=== PATIENT | female | born 1930 | race Caucasian/White ===

== ENCOUNTER → 2018-07-15 | Day surgery (SDC) | payer MEDICARE ==
[2018-07-12 14:20] LABS: BASOPHILS % 0.7 % (0.0-1.0); EOSINOPHILS # (AUTO) 0.2 (0.0-0.4); EOSINOPHILS % 3.7 % (0.0-6.0); HEMATOCRIT 36.5 % (34.2-44.1); HEMOGLOBIN 12.2 g/dL (12.0-16.0); LYMPHOCYTES % 37.4 % (18.0-39.1); MEAN CORPUSCULAR HEMOGLOBIN 30.7 pg (28-32); MEAN CORPUSCULAR HGB CONC 33.4 g/dL (31-35); MEAN CORPUSCULAR VOLUME 91.9 fL (81-99); MONOCYTES # (AUTO) 0.5 (0.2-0.8); NEUTROPHILS # (AUTO) 2.7 (2.1-6.9); NEUTROPHILS % 48.8 % (38.7-80.0); PLATELET COUNT 339 x10e3/uL (140-360); RED BLOOD COUNT 3.97 x10e6/uL (3.6-5.1); RED CELL DISTRIBUTION WIDTH 14.3 % (11.7-14.4)
[~2018-07-15] MED LIST: ASPIR 8181 MG PO; CO Q10200 MG PO; CRANBERRY300 MG PO; CRESTOR10 MG PO; EVISTA60 MG PO; FENOFIBRATE145 MG PO; FENTANYL CITRATE/PF 100MCG/2 ML INJ ONE; IOPAMIDOL 200 MG/ML 20 ML VIAL IT ONE; LIDOCAINE HCL 1% 30ML-PF VIAL ONE; LIDOCAINE HCL 2% LOCAL INJ 5 ML SDV VIAL INJ ONE; LOSARTAN POTAS100 MG PO; MAGNESIUM OXID400 MG PO; METOPROLOL SUCC25 MG PO; MIDAZOLAM HCL 2 MG/2 ML VIAL ONE; MULTI-VITAMIN1 EACH PO; PHENYLEPHRINE HCL 1% 10 MG/ML VIAL ONE; PROPOFOL IV EMULSION 10 MG/ML 20 ML VIAL ONE; TRIAMCINOLONE ACET 40 MG/ML VIAL ONE
--- OUTSIDE RECORDS SUMMARY | 2018-07-15 05:13 | XMS REPORT | Clinical Summary ---
Author Author [facility] Organization [facility] Address Unknown Phone Unavailable Care Team Providers Care Tool And Cutter Grinder Name Role Phone Go Rubio MD PCP Allergies Comments Active Allergy Reactions Severity Noted Date Naproxen 05/21/2018 Penicillins 05/21/2018 Medications Not on file Active Problems Not on file Encounters Care Team Description Date Type Specialty Moi Brown, Acute right ankle pain (Primary Dx); Ankle edema 05/21/2018 Emergency Emergency Medicine 05/21/2018 Travel after 07/14/2017 Social History Date Tobacco Use Types Packs/Day Years Used Never Smoker Smokeless Tobacco: Never Used Alcohol Use Drinks/Week oz/Week Comments No Alcohol Habits Answer Date Recorded How often do you have a drink containing alcohol? Never 05/21/2018 How many drinks containing alcohol do you have on Not asked a typical day when you are drinking? How often do you have six or more drinks on one Not asked occasion? Sex Assigned at Date Recorded Not on file Industry Job Start Date Occupation Not on file Not on file Not on file Travel End Travel History Travel Start No recent travel history available. Last Filed Vital Signs Time Taken Vital Sign Reading 05/21/2018 4:13 PM [employer] ATTENDANT Blood Pressure 139/63 05/21/2018 4:13 PM [employer] ATTENDANT Pulse 72 05/21/2018 12:37 PM [employer] ATTENDANT Temperature 36.4 C (97.6 F) 05/21/2018 4:13 PM [employer] ATTENDANT Respiratory Rate 19 05/21/2018 4:13 PM [employer] ATTENDANT Oxygen Saturation 99% - Inhaled Oxygen - Concentration 05/21/2018 12:38 PM [employer] ATTENDANT Weight 76.2 kg (168 lb) 05/21/2018 12:38 PM [employer] ATTENDANT Height 165.1 cm (5' 5") 05/21/2018 12:38 PM [employer] ATTENDANT Body Mass Index 27.96 Plan of Treatment Health Maintenance Due Date Last Done Comments SHINGLES VACCINES (1 of 1981 2) PNEUMOCOCCAL 1996 POLYSACCHARIDE VACCINE AGE 65 AND OVER PNEUMOCOCCAL-13 1996 INFLUENZA VACCINE 02/03/2018 Procedures Comments Procedure Name Priority Date/Time Associated Diagnosis XR ANKLE 3+ VW RIGHT STAT 05/21/2018 3:30 PM [employer] ATTENDANT US DUPLEX VENOUS LOWER STAT 05/21/2018 EXTREMITY RIGHT 1:55 PM [employer] ATTENDANT ESTIMATED GFR STAT 05/21/2018 1:18 PM [employer] ATTENDANT URIC ACID LEVEL STAT 05/21/2018 1:18 PM [employer] ATTENDANT COMPREHENSIVE METABOLIC STAT 05/21/2018 PANEL 1:18 PM [employer] ATTENDANT HC COMPLETE BLD COUNT STAT 05/21/2018 W/AUTO DIFF 1:18 PM [employer] LINE ATTENDANT after 07/14/2017 Results * XR Ankle 3+ Vw Right (05/21/2018 3:30 PM [employer] ATTENDANT) Narrative Performed At EXAMINATION:XR ANKLE 3VW RIGHT HM [facility] CLINICAL HISTORY: ankle pain COMPARISON:None. FINDINGS: The bones are demineralized. There is some diffuse soft tissue swelling. No fracture or malalignment is noted. There is no significant ankle joint effusion. There is a small plantar calcaneal spur. IMPRESSION: As above [id number] Procedure Note Hm Interface, Radiology Results Incoming - 05/21/2018 3:34 PM [employer] ATTENDANT EXAMINATION: XR ANKLE 3 VW RIGHT CLINICAL HISTORY: ankle pain COMPARISON: None. FINDINGS: The bones are demineralized. There is some diffuse soft tissue swelling. No fracture or malalignment is noted. There is no significant ankle joint effusion. There is a small plantar calcaneal spur. IMPRESSION: As above [id number] Performing Organization Address City/State/Zipcode Phone Number [facility] [address] [place] [address] * PV duplex venous lower extremity (05/21/2018 1:55 PM [employer] ATTENDANT) Narrative Performed At [facility] Normal venous duplex scan of the right leg. Performing Organization Address City/[facility]/Zipcode Phone Number [facility] [address] [place] [address] * Estimated GFR (05/21/2018 1:18 PM [employer] ATTENDANT) Estimated GFR 57 (A) mL/min/1.73 m2 [facility] Comment: [facility] CatergoryUnitsInte rpretation G1 >=90 Normal or high G2 60-89Mildly decreased [id number] Mildly to moderately decreased [id number] Moderately to severely decreased G4 15-29Severely decreased G5 <15Kidney failure The eGFR was calculated using the Chronic Kidney Disease Epidemiology Collaboration (CKD-EPI) equation. Interpretation is based on recommendations of the National Kidney Foundation-Kidney Disease Outcomes Quality Initiative (NKF-KDOQI) published in 2014. Specimen Plasma specimen Performing Organization Address City/State/Zipcode Phone Number [facility] DEPARTMENT [id number] [place] [address] [place] [address] PATHOLOGY AND GENOMIC MEDICINE [facility] [address] [place] [address] [place] [place] [id number] [place] [address] * CBC with platelet and differential (05/21/2018 1:18 PM [employer]IR[employer] LINE ATTENDANT) WBC 4.33 (L) 4.50 - 11.00 k/uL [facility] RBC 3.68 (L) 4.20 - 5.50 m/uL [facility] HGB 11.2 (L) 12.0 - 16.0 g/dL [facility] HCT 33.9 (L) 37.0 - 47.0 % [facility] MCV 92.1 82.0 - 100.0 fL [facility] MCH 30.4 27.0 - 34.0 pg [facility] MCHC 33.0 31.0 - 37.0 g/dL [facility] RDW - SD 48.8 37.0 - 55.0 fL [facility] MPV 11.1 8.8 - 13.2 fL [facility] Platelet count 242 150 - 400 k/uL [facility] Nucleated RBC 0.00 /100 WBC [facility] Neutrophils 57.0 39.0 - 69.0 % [facility] Lymphocytes 26.6 25.0 - 45.0 % [facility] Monocytes 11.8 (H) 0.0 - 10.0 % [facility] Eosinophils 3.9 0.0 - 5.0 % [facility] Basophils 0.5 0.0 - 1.0 % [facility] Specimen Blood Performing Organization Address City/[facility] Phone Number [address] [place] [address] PATHOLOGY AND GENOMIC MEDICINE [address] * Uric acid level (05/21/2018 1:18 PM VIRGINIA LINE ATTENDANT) Uric acid 4.2 2.4 - 5.7 mg/dL [facility] Specimen Plasma specimen Performing Organization Address City/[facility] Phone Number [address] [place] [address] PATHOLOGY AND GENOMIC MEDICINE [address] * Comprehensive metabolic panel (05/21/2018 1:18 PM VIR[employer]IA LINE ATTENDANT) Sodium 140 135 - 148 mEq/L [facility] Potassium 4.2 3.5 - 5.0 mEq/L [facility] Chloride 107 98 - 112 mEq/L [facility] CO2 23 (L) 24 - 31 mEq/L [facility] Anion gap 10@ANIO 7 - 15 mEq/L [facility] BUN 13 8 - 23 mg/dL [facility] Creatinine 0.90 0.50 - 0.90 mg/dL [facility] Glucose 99 65 - 99 mg/dL [facility] Calcium 10.1 8.8 - 10.2 mg/dL [facility] Protein 6.6 6.3 - 8.3 g/dL [facility] Comment: [facility] 4.6-7.0 g/dL 1 week 4.4-7.6 g/dL 7 months-1year 5.1-7.3 g/dL 1-2 years5.6-7 .5 g/dL >3 years6.0-8 .0 g/dL 18-150 6.3-8.3 g/dL Albumin 3.7 3.5 - 5.0 g/dL [facility] A/G ratio 1.3 0.7 - 3.8 [facility] Alkaline phosphatase 35 35 - 104 U/L [facility] AST 29 10 - 35 U/L [facility] ALT 13 5 - 50 U/L [facility] Total bilirubin 0.4 0.0 - 1.2 mg/dL [facility] Specimen Plasma specimen Performing Organization Address City/State/Zipcode [place] Number [place] [address] [place] [address] PATHOLOGY AND GENOMIC MEDICINE [facility] [id number] [place] [address] [place] [address] [facility] after 07/14/2017 Insurance Payer Benefit Subscriber ID Type Phone Address Plan / Group UHC MEDICARE UHC xxxxxxxxx HMO MEDICARE COMPLETE Advance Directives Patient has advance care planning documents on file. For more information, cassius e contact: [facility] [address] [place] [address]
[2018-07-15 07:25] VITALS: BP 118/65
== END | disposition home or self-care (01) ==
LOC: OR 05:05
PROVIDERS: ATTEND Physical Medicine & Rehabilitation Pain Medicine
DX: M47.896 Other spondylosis, lumbar region (principal); M46.1 Sacroiliitis, not elsewhere classified; M17.0 Bilateral primary osteoarthritis of knee; M16.11 Unilateral primary osteoarthritis, right hip; M70.62 Trochanteric bursitis, left hip; M70.61 Trochanteric bursitis, right hip; G89.29 Other chronic pain; I44.7 Left bundle-branch block, unspecified; I49.1 Atrial premature depolarization; I10 Essential (primary) hypertension; E78.00 Pure hypercholesterolemia, unspecified; H93.19 Tinnitus, unspecified ear; Z88.0 Allergy status to penicillin; Z88.6 Allergy status to analgesic agent; Z01.810 Encounter for preprocedural cardiovascular examination; Z01.812 Encounter for preprocedural laboratory examination; Z79.82 Long term (current) use of aspirin; Z85.828 Personal history of other malignant neoplasm of skin; Z87.891 Personal history of nicotine dependence
CPT/HCPCS: 36415; 64493; 64494; 64495; 85025; 93005; J2001 ×2; J2250; J2370; J2704; J3301; Q9967; 77003

== ENCOUNTER → 2018-07-29 | Day surgery (SDC) | payer MEDICARE ==
[~2018-07-29] MED LIST changes: -FENTANYL CITRATE/PF 100MCG/2 ML INJ ONE; -MIDAZOLAM HCL 2 MG/2 ML VIAL ONE; -PHENYLEPHRINE HCL 1% 10 MG/ML VIAL ONE
--- OUTSIDE RECORDS SUMMARY | 2018-07-29 05:24 | XMS REPORT | Clinical Summary ---
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 Name Role Phone Go Rubio MD PCP Allergies Comments Active Allergy Reactions Severity Noted Date Naproxen 05/21/2018 Penicillins 05/21/2018 Medications Not on file Active Problems Not on file Encounters Care Team Description Date Type Specialty Moi Brown, Acute right ankle pain (Primary Dx); Ankle edema 05/21/2018 Emergency Emergency Medicine 05/21/2018 Travel after 07/28/2017 Social History Date Tobacco Use Types Packs/Day [...] Taken Vital Sign Reading 05/21/2018 4:13 PM EDITING INTERNSHIP Blood Pressure 139/63 05/21/2018 4:13 PM [employer] Pulse 72 05/21/2018 12:37 PM [employer] INTERNS[employer] Temperature 36.4 C (97.6 F) 05/21/2018 4:13 PM [employer] Respiratory Rate 19 05/21/2018 4:13 PM [employer] INTERNS[employer]IP Oxygen Saturation 99% - Inhaled Oxygen - Concentration 05/21/2018 12:38 PM [employer]NS[employer]IP Weight 76.2 kg (168 lb) 05/21/2018 12:38 PM [employer] INTERNS[employer] Height 165.1 cm (5' 5") 05/21/2018 12:38 PM EDITING INTERNSHIP Body Mass Index 27.96 Plan of Treatment Health Maintenance Due Date Last Done Comments SHINGLES VACCINES (1 of 1981 2) PNEUMOCOCCAL 1996 POLYSACCHARIDE VACCINE AGE 65 AND OVER PNEUMOCOCCAL-13 1996 INFLUENZA VACCINE 02/03/2018 Procedures Comments Procedure Name Priority Date/Time Associated Diagnosis XR ANKLE 3+ VW RIGHT STAT 05/21/2018 3:30 PM [employer] INTERNS[employer]IP US DUPLEX VENOUS LOWER STAT 05/21/2018 EXTREMITY RIGHT 1:55 PM [employer] ESTIMATED GFR STAT 05/21/2018 1:18 PM [employer] INTERNSHIP URIC ACID LEVEL STAT 05/21/2018 1:18 PM [employer] INTERNSHIP COMPREHENSIVE METABOLIC STAT 05/21/2018 PANEL 1:18 PM [employer] INTERNSHIP HC COMPLETE BLD COUNT STAT 05/21/2018 W/AUTO DIFF 1:18 PM [employer] INTER[employer] after 07/28/2017 Results * XR Ankle 3+ Vw Right (05/21/2018 3:30 PM [employer] INTERNSH[employer]) Narrative Performed At EXAMINATION:XR ANKLE 3VW RIGHT HM [facility] CLINICAL HISTORY: ankle pain COMPARISON:None. FINDINGS: The bones are demineralized. There is some diffuse soft tissue swelling. No fracture or malalignment is noted. There is no significant ankle joint effusion. There is a small plantar calcaneal spur. IMPRESSION: As above [id number] Procedure Note Hm Interface, Radiology Results Incoming - 05/21/2018 3:34 PM [employer] INTERNSHIP EXAMINATION: XR ANKLE 3 VW RIGHT CLINICAL HISTORY: ankle pain COMPARISON: None. FINDINGS: The bones are demineralized. There is some diffuse soft tissue swelling. No fracture or malalignment is noted. There is no significant ankle joint effusion. There is a small plantar calcaneal spur. IMPRESSION: As above [id number] Performing Organization Address City/State/Zipcode Phone Number [facility] [address] [place] [address] * PV duplex venous lower extremity (05/21/2018 1:55 PM [employer] INTERNSHIP) Narrative Performed At [facility] Normal venous duplex scan of the right leg. Performing Organization Address City/[facility]/Zipcode Phone Number [facility] [address] [place] [address] * Estimated GFR (05/21/2018 1:18 PM EDIT[employer] INTERNSHIP) Estimated GFR 57 (A) mL/min/1.73 m2 [facility] Comment: [facility] CatergoryUnitsInte rpretation G1 >=90 Normal or high G2 60-89Mildly decreased [id number] Mildly to moderately decreased Q1c35-91 Moderately to severely decreased G4 15-29Severely decreased G5 <15Kidney failure The eGFR was calculated using the Chronic Kidney Disease Epidemiology Collaboration (CKD-EPI) equation. Interpretation is based on recommendations of the National Kidney Foundation-Kidney Disease Outcomes Quality Initiative (NKF-KDOQI) published in 2014. Specimen Plasma specimen Performing Organization Address City/State/Zipcode Phone Number [facility] DEPARTMENT [id number] [place] [address] [place] [address] PATHOLOGY AND GENOMIC MEDICINE [facility] [id number] [place] [address] [place] [id number] [place] [address] * CBC with platelet and differential (05/21/2018 1:18 PM [employer] INTERNSH[employer]) WBC 4.33 (L) 4.50 - 11.00 k/uL [facility] RBC 3.68 (L) 4.20 - 5.50 m/uL [facility] HGB 11.2 (L) 12.0 - 16.0 g/dL [facility] HCT 33.9 (L) 37.0 - 47.0 % [facility] MCV 92.1 82.0 - 100.[address] [facility] MCH 30.4 27.0 - 34.[address] [facility] MCHC 33.0 31.0 - 37.0 g/dL [facility] RDW - SD 48.8 37.0 - 55.[address] [facility] MPV 11.1 8.8 - 13.[address] [facility] Platelet count 242 150 - 400 k/uL [facility] Nucleated RBC 0.00 /[address] [facility] Neutrophils 57.0 39.0 - 69.0 % [facility] Lymphocytes 26.6 25.0 - 45.0 % [facility] Monocytes 11.8 (H) 0.0 - 10.0 % [facility] Eosinophils 3.9 0.0 - 5.0 % [facility] Basophils 0.5 0.0 - 1.0 % [facility] Specimen Blood Performing Organization Address City/[facility] Phone Number [address] [place] [address] PATHOLOGY AND GENOMIC MEDICINE [address] * Uric acid level (05/21/2018 1:18 PM [employer] INTERNSHIP) Uric acid 4.2 2.4 - 5.7 mg/dL [facility] Specimen Plasma specimen Performing Organization Address City/[facility] Hospital[facility]oid Phone Number [address] [place] [address] PATHOLOGY AND GENOMIC MEDICINE [address] * Comprehensive metabolic panel (05/21/2018 1:18 PM [employer]NSH[employer]) Sodium 140 135 - 148 mEq/L [facility] Potassium 4.2 3.5 - 5.0 mEq/L [facility] Chloride 107 98 - 112 mEq/L [facility] CO2 23 (L) 24 - 31 mEq/L [facility] Anion gap 10@ANIO 7 - 15 mEq/L [facility] BUN 13 8 - 23 mg/dL [facility] Creatinine 0.90 0.50 - 0.90 mg/dL [facility] Glucose 99 65 - 99 mg/dL [facility] Calcium 10.1 8.8 - 10.2 mg/dL [facility] Protein 6.6 6.3 - 8.3 g/dL [facility] Comment: [facility] 4.6-7.0 g/dL 1 week 4.4-7.6 g/dL 7 months-1year 5.1-7.3 g/dL 1-2 years5.6-7 .5 g/dL >3 years6.0-8 .0 g/dL 18-150 6.3-8.3 g/dL Albumin 3.7 3.5 - 5.0 g/dL [facility] A/G ratio 1.3 0.7 - 3.8 [facility] Alkaline phosphatase 35 35 - 104 U/L [facility] AST 29 10 - 35 U/L [facility] ALT 13 5 - 50 U/L [facility] Total bilirubin 0.4 0.0 - 1.2 mg/dL [facility] Specimen Plasma specimen Performing Organization Address City/State/Zipcode [place] Number [place] [address] [place] [address] PATHOLOGY AND GENOMIC MEDICINE [facility] [id number] [place] [address] [place] [address] [facility] after 07/28/2017 Insurance Payer Benefit Subscriber ID Type Phone Address Plan / Group UHC MEDICARE UHC xxxxxxxxx HMO MEDICARE COMPLETE Advance Directives Patient has advance care planning documents on file. For more information, cassius e contact: [facility] [address] [place] [address]
[2018-07-29 08:10] VITALS: BP 116/63
== END | disposition home or self-care (01) ==
LOC: OR 05:18
PROVIDERS: ATTEND Physical Medicine & Rehabilitation Pain Medicine
DX: M46.1 Sacroiliitis, not elsewhere classified (principal); M47.816 Spondylosis without myelopathy or radiculopathy, lumbar region; M17.0 Bilateral primary osteoarthritis of knee; M16.11 Unilateral primary osteoarthritis, right hip; M47.897 Other spondylosis, lumbosacral region; I10 Essential (primary) hypertension; E78.00 Pure hypercholesterolemia, unspecified; I49.1 Atrial premature depolarization; Z88.6 Allergy status to analgesic agent; Z88.0 Allergy status to penicillin; Z79.82 Long term (current) use of aspirin; Z87.891 Personal history of nicotine dependence; Z85.828 Personal history of other malignant neoplasm of skin
CPT/HCPCS: G0260; J2001 ×2; J2704; J3301; Q9967

== ENCOUNTER → 2018-08-19 | Day surgery (SDC) | payer MEDICARE ==
[~2018-08-19] MED LIST changes: +IRBESARTAN150 MG PO
--- OUTSIDE RECORDS SUMMARY | 2018-08-19 05:55 | XMS REPORT | Clinical Summary ---
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 Name Role Phone Go Rubio MD PCP Allergies Comments Active Allergy Reactions Severity Noted Date Naproxen 05/21/2018 Penicillins 05/21/2018 Medications Not on file Active Problems Not on file Encounters Care Team Description Date Type Specialty Moi Brown, Acute right ankle pain (Primary Dx); Ankle edema 05/21/2018 Emergency Emergency Medicine 05/21/2018 Travel after 08/18/2017 Social History Date Tobacco Use Types Packs/Day [...] Taken Vital Sign Reading 05/21/2018 4:13 PM ARBITRATOR Blood Pressure 139/63 05/21/2018 4:13 PM ARBITRATOR Pulse 72 05/21/2018 12:37 PM ARBITRATOR Temperature 36.4 C (97.6 F) 05/21/2018 4:13 PM ARBITRATOR Respiratory Rate 19 05/21/2018 4:13 PM ARBITRATOR Oxygen Saturation 99% - Inhaled Oxygen - Concentration 05/21/2018 12:38 PM ARBITRATOR Weight 76.2 kg (168 lb) 05/21/2018 12:38 PM ARBITRATOR Height 165.1 cm (5' 5") 05/21/2018 12:38 PM ARBITRATOR Body Mass Index 27.96 Plan of Treatment Health Maintenance Due Date Last Done Comments SHINGLES VACCINES (1 of 1981 2) PNEUMOCOCCAL 1996 POLYSACCHARIDE VACCINE AGE 65 AND OVER PNEUMOCOCCAL-13 1996 INFLUENZA VACCINE 02/03/2018 Procedures Comments Procedure Name Priority Date/Time Associated Diagnosis XR ANKLE 3+ VW RIGHT STAT 05/21/2018 3:30 PM ARBITRATOR US DUPLEX VENOUS LOWER STAT 05/21/2018 EXTREMITY RIGHT 1:55 PM ARBITRATOR ESTIMATED GFR STAT 05/21/2018 1:18 PM ARBITRATOR URIC ACID LEVEL STAT 05/21/2018 1:18 PM ARBITRATOR COMPREHENSIVE METABOLIC STAT 05/21/2018 PANEL 1:18 PM ARBITRATOR HC COMPLETE BLD COUNT STAT 05/21/2018 W/AUTO DIFF 1:18 PM ARBITRATOR after 08/18/2017 Results * XR Ankle 3+ Vw Right (05/21/2018 3:30 PM ARBITRATOR) Narrative Performed At EXAMINATION:XR ANKLE 3VW RIGHT HM [facility] CLINICAL HISTORY: ankle pain COMPARISON:None. FINDINGS: The bones are demineralized. There is some diffuse soft tissue swelling. No fracture or malalignment is noted. There is no significant ankle joint effusion. There is a small plantar calcaneal spur. IMPRESSION: As above [id number] Procedure Note Hm Interface, Radiology Results Incoming - 05/21/2018 3:34 PM ARBITRATOR EXAMINATION: XR ANKLE 3 VW RIGHT CLINICAL HISTORY: ankle pain COMPARISON: None. FINDINGS: The bones are demineralized. There is some diffuse soft tissue swelling. No fracture or malalignment is noted. There is no significant ankle joint effusion. There is a small plantar calcaneal spur. IMPRESSION: As above [id number] Performing Organization Address City/State/Zipcode Phone Number [facility] [address] [place] [address] * PV duplex venous lower extremity (05/21/2018 1:55 PM ARBITRATOR) Narrative Performed At [facility] Normal venous duplex scan of the right leg. Performing Organization Address City/[facility]/Zipcode Phone Number [facility] [address] [place] [address] * Estimated GFR (05/21/2018 1:18 PM ARBITRATOR) Estimated GFR 57 (A) mL/min/1.73 m2 [facility] Comment: [facility] CatergoryUnitsInte rpretation G1 >=90 Normal or high G2 60-89Mildly decreased [id number] Mildly to moderately decreased U5a62-65 Moderately to severely decreased G4 15-29Severely decreased G5 <15Kidney failure The eGFR was calculated using the Chronic Kidney Disease Epidemiology Collaboration (CKD-EPI) equation. Interpretation is based on recommendations of the National Kidney Foundation-Kidney Disease Outcomes Quality Initiative (NKF-KDOQI) published in 2014. Specimen Plasma specimen Performing Organization Address City/State/Zipcode Phone Number [facility] DEPARTMENT [phone] [place] [address] [place] [address] [address] [facility] [id number] [place] [address] [place], [place] [id number] [place] [address] * CBC with platelet and differential (05/21/2018 1:18 PM ARBITRATOR) WBC 4.33 (L) 4.50 - 11.00 k/uL [facility] RBC 3.68 (L) 4.20 - 5.50 m/uL [facility] HGB 11.2 (L) 12.0 - 16.0 g/dL [facility] HCT 33.9 (L) 37.0 - 47.0 % [facility] MCV 92.1 82.0 - 100.0 fL [facility] MCH 30.4 27.0 - 34.0 pg [facility] MCHC 33.0 31.0 - 37.0 g/dL [facility] RDW - SD 48.8 37.0 - 55.0 fL [facility] MPV 11.1 8.8 - 13.2 fL [facility] Platelet count 242 150 - 400 k/uL [facility] Nucleated RBC 0.00 /100 WBC [facility] Neutrophils 57.0 39.0 - 69.0 % [facility] Lymphocytes 26.6 25.0 - 45.0 % [facility] Monocytes 11.8 (H) 0.0 - 10.0 % [facility] Eosinophils 3.9 0.0 - 5.0 % [facility] Basophils 0.5 0.0 - 1.0 % [facility] Specimen Blood Performing Organization Address City/[facility] Phone Number [address] [place] [address] PATHOLOGY AND GENOMIC MEDICINE [address] * Uric acid level (05/21/2018 1:18 PM ARBITRATOR) Uric acid 4.2 2.4 - 5.7 mg/dL [facility] Specimen Plasma specimen Performing Organization Address City/[facility] Phone Number [address] [place] [address] PATHOLOGY AND GENOMIC MEDICINE [address] * Comprehensive metabolic panel (05/21/2018 1:18 PM ARBITRATOR) Sodium 140 135 - 148 mEq/L [facility] Potassium 4.2 3.5 - 5.0 mEq/L [facility] Chloride 107 98 - 112 mEq/L [facility] CO2 23 (L) 24 - 31 mEq/L [facility] Anion gap 10@ANIO 7 - 15 mEq/L [facility] BUN 13 8 - 23 mg/dL [facility] Creatinine 0.90 0.50 - 0.90 mg/dL [facility] Glucose 99 65 - 99 mg/dL [facility] Calcium 10.1 8.8 - 10.2 mg/dL [facility] Protein 6.6 6.3 - 8.3 g/dL [facility] Comment: [facility] 4.6-7.0 g/dL 1 week 4.4-7.6 g/dL 7 months-1year 5.1-7.3 g/dL 1-2 years5.6-7 .5 g/dL >3 years6.0-8 .0 g/dL 18-150 6.3-8.3 g/dL Albumin 3.7 3.5 - 5.0 g/dL [facility] A/G ratio 1.3 0.7 - 3.8 [facility] Alkaline phosphatase 35 35 - 104 U/L [facility] AST 29 10 - 35 U/L [facility] ALT 13 5 - 50 U/L [facility] Total bilirubin 0.4 0.0 - 1.2 mg/dL [facility] Specimen Plasma specimen Performing Organization Address City/State/Zipcode [place] Number [place] [address] [place] [address] PATHOLOGY [address] GENOMIC MEDICINE [facility] [id number] [place] [address] [place] [address] [facility] after 08/18/2017 Insurance Payer Benefit Subscriber ID Type Phone Address Plan / Group UHC MEDICARE UHC xxxxxxxxx HMO MEDICARE COMPLETE Advance Directives Patient has advance care planning documents on file. For more information, cassius e contact: [facility] [address] [place] [address]
[2018-08-19 08:30] VITALS: BP 121/61
== END | disposition home or self-care (01) ==
LOC: OR 05:52
PROVIDERS: ATTEND Physical Medicine & Rehabilitation Pain Medicine
DX: M46.1 Sacroiliitis, not elsewhere classified (principal); G57.02 Lesion of sciatic nerve, left lower limb; M62.838 Other muscle spasm; M47.816 Spondylosis without myelopathy or radiculopathy, lumbar region; M17.0 Bilateral primary osteoarthritis of knee; M16.0 Bilateral primary osteoarthritis of hip; M70.62 Trochanteric bursitis, left hip; M70.61 Trochanteric bursitis, right hip; I10 Essential (primary) hypertension; E78.00 Pure hypercholesterolemia, unspecified; K21.9 Gastro-esophageal reflux disease without esophagitis; Z88.0 Allergy status to penicillin; Z88.6 Allergy status to analgesic agent; Z79.82 Long term (current) use of aspirin; Z87.891 Personal history of nicotine dependence
CPT/HCPCS: 20552; G0259; 77003; J2001; J3301; Q9967

== ENCOUNTER → 2018-09-30 | Day surgery (SDC) | payer MEDICARE ==
[~2018-09-30] MED LIST changes: +ACETAMINOPHEN 1000 MG/100 ML IV ONE; +BUPIVACAINE 0.25% 30ML SDV INJ ONE; +DEXAMETHASONE SOD PHOS 10 MG/1 ML VIAL ONE; +DEXAMETHASONE SOD PHOS INJ 4 MG/ML VIAL ONE; +ONDANSETRON HCL INJ 2MG/ML 2ML 2 MG/ML VIAL ONE; +ROCURONIUM BROMIDE 10 MG/ML 5ML VIAL ONE; +SEVOFLURANE INHAL SOLN 250 ML PEN BTL ONE; -TRIAMCINOLONE ACET 40 MG/ML VIAL ONE
--- OUTSIDE RECORDS SUMMARY | 2018-09-30 05:21 | XMS REPORT | Clinical Summary ---
Author Author [facility] [facility] [employer] Address Unknown Phone Unavailable Care Team Providers Care Rn Document Improvement Name Role Phone Go Rubio MD PCP Allergies Comments Active Allergy Reactions Severity Noted Date Naproxen 05/21/2018 Penicillins 05/21/2018 Medications Not on file Active Problems Not on file Encounters Care Team Description Date Type Specialty Moi Brown, Acute right ankle pain (Primary Dx); Ankle edema 05/21/2018 Emergency Emergency Medicine 05/21/2018 Travel after 09/29/2017 Social History Date Tobacco Use Types Packs/Day [...] Taken Vital Sign Reading 05/21/2018 4:13 PM [facility] Blood Pressure 139/63 05/21/2018 4:13 PM [facility] Pulse 72 05/21/2018 12:37 PM [facility] Temperature 36.4 C (97.6 F) 05/21/2018 4:13 PM [facility] Respiratory Rate 19 05/21/2018 4:13 PM [facility] Oxygen Saturation 99% - Inhaled Oxygen - Concentration 05/21/2018 12:38 PM [facility] Weight 76.2 kg (168 lb) 05/21/2018 12:38 PM [facility] Height 165.1 cm (5' 5") 05/21/2018 12:38 PM [facility] Body Mass Index 27.96 Plan of Treatment Health Maintenance Due Date Last Done Comments SHINGLES VACCINES (#1) 1981 65+ PNEUMOCOCCAL VACCINE 1996 (1 of 2 - PCV13) PNEUMOCOCCAL 1996 POLYSACCHARIDE VACCINE AGE 65 AND OVER INFLUENZA VACCINE 02/03/2018 Procedures Comments Procedure Name Priority Date/Time Associated Diagnosis XR ANKLE 3+ VW RIGHT STAT 05/21/2018 3:30 PM [facility] US DUPLEX VENOUS LOWER STAT 05/21/2018 EXTREMITY RIGHT 1:55 PM [facility] ESTIMATED GFR STAT 05/21/2018 1:18 PM [facility]IST URIC ACID LEVEL STAT 05/21/2018 1:18 PM [facility] COMPREHENSIVE METABOLIC STAT 05/21/2018 PANEL 1:18 PM [facility] HC COMPLETE BLD COUNT STAT 05/21/2018 W/AUTO DIFF 1:18 PM [facility]IST after 09/29/2017 Results * XR Ankle 3+ Vw Right (05/21/2018 3:30 PM [facility] SUPPORT SPECIALIST) Narrative Performed At EXAMINATION:XR ANKLE 3VW RIGHT [facility] CLINICAL HISTORY: ankle pain COMPARISON:None. FINDINGS: The bones are demineralized. There is some diffuse soft tissue swelling. No fracture or malalignment is noted. There is no significant ankle joint effusion. There is a small plantar calcaneal spur. IMPRESSION: As above [id number] Procedure Note Interface, Radiology Results Incoming - 05/21/2018 3:34 PM [facility]IST EXAMINATION: XR ANKLE 3 VW RIGHT CLINICAL HISTORY: ankle pain COMPARISON: None. FINDINGS: The bones are demineralized. There is some diffuse soft tissue swelling. No fracture or malalignment is noted. There is no significant ankle joint effusion. There is a small plantar calcaneal spur. IMPRESSION: As above [facility]-[id number] Performing Organization Address City/State/Zipcode Phone Number [facility] [address] [place] [address] * PV duplex venous lower extremity (05/21/2018 1:55 PM HE[facility] SUPPORT SPECIALIST) Narrative Performed At [facility] Normal venous duplex scan of the right leg. Performing Organization Address City/[facility]/Zipcode Phone Number [facility] [address] [place] [address] * Estimated GFR (05/21/2018 1:18 PM HE[facility] SUPPORT SPECIALIST) Estimated GFR 57 (A) mL/min/1.73 m2 [facility] Comment: [facility] CatergoryUnitsInte rpretation G1 >=90 Normal or high G2 60-89Mildly decreased [id number] Mildly to moderately decreased [id number] Moderately to severely decreased G4 15-29Severely decreased G5 <15Kidney failure The eGFR was calculated using the Chronic Kidney Disease Epidemiology Collaboration (CKD-EPI) equation. Interpretation is based on recommendations of the National Kidney Foundation-Kidney Disease Outcomes Quality Initiative (NKF-KDOQI) published in 2014. Specimen Plasma specimen Performing Organization Address City/State/Zipcode Phone Number [facility] [address] [place] [address] PATHOLOGY AND GENOMIC MEDICINE [facility] [address] [place] [address] [facility] * CBC with platelet and differential (05/21/2018 1:18 PM [facility]PPORT SPECIALIST) WBC 4.33 (L) 4.50 - 11.00 k/uL [facility] RBC 3.68 (L) 4.20 - 5.50 m/uL [facility] HGB 11.2 (L) 12.0 - 16.0 g/dL [facility] HCT 33.9 (L) 37.0 - 47.0 % [facility] MCV 92.1 82.0 - 100.0 fL [facility] MCH 30.4 27.0 - 34.0 pg [facility] MCHC 33.0 31.0 - 37.0 g/dL [facility] RDW - SD 48.8 37.0 - 55.0 fL [facility] MPV 11.1 8.8 - 13.2 fL [facility] Platelet count 242 150 - 400 k/uL [facility] Nucleated RBC 0.00 /100 WBC [facility] Neutrophils 57.0 39.0 - 69.0 % [facility] Lymphocytes 26.6 25.0 - 45.0 % [facility] Monocytes 11.8 (H) 0.0 - 10.0 % [facility] Eosinophils 3.9 0.0 - 5.0 % [facility] Basophils 0.5 0.0 - 1.0 % [facility] Specimen Blood Performing Organization Address City/[facility] Phone Number [address] [place] [address] PATHOLOGY AND GENOMIC MEDICINE [address] * Uric acid level (05/21/2018 1:18 PM [facility]PPORT SPECIALIST) Uric acid 4.2 2.4 - 5.7 mg/dL [facility] Specimen Plasma specimen Performing Organization Address City/[facility] Phone Number [address] [place] [address] PATHOLOGY AND GENOMIC MEDICINE [address] * Comprehensive metabolic panel (05/21/2018 1:18 PM HE[facility] SUPPORT SPECIALIST) Sodium 140 135 - 148 mEq/L [facility] Potassium 4.2 3.5 - 5.0 mEq/L [facility] Chloride 107 98 - 112 mEq/L [facility] CO2 23 (L) 24 - 31 mEq/L [facility] Anion gap 10@ANIO 7 - 15 mEq/L [facility] BUN 13 8 - 23 mg/dL [facility] Creatinine 0.90 0.50 - 0.90 mg/dL [facility] Glucose 99 65 - 99 mg/dL [facility] Calcium 10.1 8.8 - 10.2 mg/dL [facility] Protein 6.6 6.3 - 8.3 g/dL [facility] Comment: [facility] 4.6-7.0 g/dL 1 week 4.4-7.6 g/dL 7 months-1year 5.1-7.3 g/dL 1-2 years5.6-7 .5 g/dL >3 years6.0-8 .0 g/dL 18-150 6.3-8.3 g/dL Albumin 3.7 3.5 - 5.0 g/dL [facility] A/G ratio 1.3 0.7 - 3.8 [facility] Alkaline phosphatase 35 35 - 104 U/L [facility] AST 29 10 - 35 U/L [facility] ALT 13 5 - 50 U/L [facility] Total bilirubin 0.4 0.0 - 1.2 mg/dL [facility] Specimen Plasma specimen Performing Organization Address City/State/Zipcode [place] [address] [place] [address] PATHOLOGY AND GENOMIC MEDICINE [facility] [id number] [place] [address] [place] [address] [facility] after 09/29/2017 Insurance Payer Benefit Subscriber ID Type Phone Address Plan / Group UHC MEDICARE UHC xxxxxxxxx HMO MEDICARE HMO/PPO Advance Directives Patient has advance care planning documents on file. For more information, cassius mendoza contact: Bob Cruz [phone] [place] [address]
[2018-09-30 06:31] LABS: BASOPHILS % 0.8 % (0.0-1.0); EOSINOPHILS # (AUTO) 0.3 (0.0-0.4); HEMATOCRIT 35.9 % (34.2-44.1); HEMOGLOBIN 11.7 g/dL (12.0-16.0); LYMPHOCYTES # (AUTO) 1.6 (1.0-3.2); LYMPHOCYTES % 31.9 % (18.0-39.1); MEAN CORPUSCULAR HEMOGLOBIN 30.3 pg (28-32); MEAN CORPUSCULAR HGB CONC 32.6 g/dL (31-35); MONOCYTES # (AUTO) 0.6 (0.2-0.8); NEUTROPHILS # (AUTO) 2.4 (2.1-6.9); NEUTROPHILS % 48.9 % (38.7-80.0); PLATELET COUNT 292 x10e3/uL (140-360); RED BLOOD COUNT 3.86 x10e6/uL (3.6-5.1); RED CELL DISTRIBUTION WIDTH 13.8 % (11.7-14.4)
[2018-09-30 08:10] VITALS: BP 121/69
== END | disposition home or self-care (01) ==
LOC: OR 05:19
PROVIDERS: ATTEND Physical Medicine & Rehabilitation Pain Medicine
DX: M47.26 Other spondylosis with radiculopathy, lumbar region (principal); M17.0 Bilateral primary osteoarthritis of knee; M16.11 Unilateral primary osteoarthritis, right hip; M70.62 Trochanteric bursitis, left hip; M70.61 Trochanteric bursitis, right hip; I10 Essential (primary) hypertension; H93.19 Tinnitus, unspecified ear; E78.00 Pure hypercholesterolemia, unspecified; Z88.6 Allergy status to analgesic agent; Z88.0 Allergy status to penicillin; Z88.8 Allergy status to other drugs, medicaments and biological substances; Z79.82 Long term (current) use of aspirin; Z87.891 Personal history of nicotine dependence
CPT/HCPCS: 36415; 64483; 64484 ×3; 85025; J0131; J1100 ×2; J2001 ×2; J2405; J2704; Q9967; 77003

== ENCOUNTER → 2018-10-22 | Outpatient (CLI) | payer MEDICARE ==
[~2018-10-22] MED LIST changes: -ACETAMINOPHEN 1000 MG/100 ML IV ONE; -BUPIVACAINE 0.25% 30ML SDV INJ ONE; -DEXAMETHASONE SOD PHOS 10 MG/1 ML VIAL ONE; -DEXAMETHASONE SOD PHOS INJ 4 MG/ML VIAL ONE; -IOPAMIDOL 200 MG/ML 20 ML VIAL IT ONE; -LIDOCAINE HCL 1% 30ML-PF VIAL ONE; -LIDOCAINE HCL 2% LOCAL INJ 5 ML SDV VIAL INJ ONE; -ONDANSETRON HCL INJ 2MG/ML 2ML 2 MG/ML VIAL ONE; -PROPOFOL IV EMULSION 10 MG/ML 20 ML VIAL ONE; -ROCURONIUM BROMIDE 10 MG/ML 5ML VIAL ONE; -SEVOFLURANE INHAL SOLN 250 ML PEN BTL ONE
--- NOTE | 2018-10-25 07:42 | Diagnostic Imaging Report ---
History: Low back and left leg and hip pain. Comparison studies: None Technique: Sagittal and axial T2 , sagittal T1 and IR, axial spin density oblique. Intravenous contrast: None Findings: Number of lumbar vertebral bodies: 5. Alignment: S-shaped lumbar curvature with primary curvature, convex to the left with apex at L1-L2 and lower lumbar curvature convex to the right with apex at L4-L5. Mildly exaggerated lower lumbar lordotic curvature. Paraspinal muscles: Moderate asymmetric fatty atrophy the dorsal lumbar markers curvature on the left from L4 through L5 and moderate symmetric atrophy bilaterally at S1. Lower thoracic cord: Normal in signal and morphology. The tip of the terminates at L1. Cauda equina: No masses. No arachnoiditis. Vertebrae: No compression fractures, infection or neoplasm. Degenerative changes: Multilevel anterolateral marginal osteophytes, most pronounced along the concavities of lumbar curvature secondary to scoliosis. T11-T12: Mildly degenerated disc. Disc bulge and facet arthrosis without significant canal or foraminal stenosis. T12-L1: Degenerated disc, greatest on the right along the concavity of curvature were there is moderate loss of disc height, degenerative endplate changes with moderate endplate edema with and Schmorl's node formation and right lateral listhesis of T12 on L1. Asymmetric right disc bulge and right greater than left facet arthrosis with mild right foraminal stenosis. No significant canal or left foraminal stenosis. Right facet mildly widened by facet effusion. L1-L2: Moderate to severely degenerated disc on the right along the concavity of curvature were there also is a large marginal osteophyte. Asymmetric right disc osteophyte complex and facet arthrosis with mild right foraminal stenosis. No significant canal or left foraminal stenosis. L2-L3: Moderately degenerated disc on the right along the concavity of curvature with mild endplate edema.. Mild left lateral translation of L2 on L3. Asymmetric right disc osteophyte complex and facet arthrosis result in severe right foraminal stenosis. No significant canal or left foraminal stenosis. L3-L4: Moderate to severely degenerated disc with moderate degenerative endplate changes with endplate edema. There is mild left lateral translation of L3 on L4. Minimal Minimal Grade 1 Retrolisthesis of L3 on L4 with Disc Osteophyte Complex, Thickened Ligamentum Flavum and severe left and moderate right facet arthrosis with mild canal stenosis, severe left and moderate right foraminal stenosis and narrowing of the bilateral subarticular recesses with compression of the left L4 subarticular nerve root. Inferiorly migrated lateral disc extrusion also abuts the left L4 nerve root. L4-L5: Moderately degenerated disc on the left along the concavity lumbar curvature asymmetric left disc osteophyte complex, thickened ligamentum flavum and severe left and moderate right facet arthrosis with mild canal stenosis, severe left and moderate right foraminal stenosis and narrowing of the subarticular recess on the left with compression of the left L5 nerve root. L5-S1: Mildly degenerated disc disc bulge, thickened ligamentum flavum and moderate bilateral facet arthrosis with mild canal and bilateral foraminal stenosis. IMPRESSION: 1. S-shaped lumbar scoliosis with moderate to severe multilevel degenerative changes which include: multilevel disc degeneration, facet arthrosis, foraminal stenosis and mild multilevel canal stenosis. 2. Degenerative endplate changes with endplate edema at T12-L1, L2-L3 and at L3-L4. 3. Severe foraminal stenosis on the right at L2-L3 and on the left at L3-L4. 4. Left L4 nerve root compression secondary to severe foraminal and subarticular stenosis with inferiorly migrated L3-L4 disc extrusion which also abuts the left L4 nerve root. Left L5 nerve root also compressed in the subarticular recess. Signed by: Dr. Ezra Toney M.D. on 10/25/2018 7:38 AM
== END ==
LOC: MRI 08:18
PROVIDERS: ATTEND Physical Medicine & Rehabilitation Pain Medicine
DX: M47.26 Other spondylosis with radiculopathy, lumbar region (principal); M54.5 Low back pain; M79.662 Pain in left lower leg; G89.4 Chronic pain syndrome
CPT/HCPCS: 72148

== ENCOUNTER → 2020-02-27 | Outpatient (CLI) | payer MEDICARE ==
--- NOTE | 2020-02-27 16:00 | Diagnostic Imaging Report ---
MRI SPINE LUMBAR WO HISTORY: Low back pain, right groin pain COMPARISON: MRI of the lumbar spine 10/22/2018 TECHNIQUE: Sagittal T1, sagittal T2, sagittal STIR, axial T2, coronal T2, and axial proton density weighted images of the lumbar spine were obtained without contrast. DISCUSSION: Number of non-rib bearing lumbar vertebral bodies: 5. Alignment: Normal lordosis. Thoracolumbar levoscoliosis centered at T12-L1 and compensatory lower lumbar dextroscoliosis centered at L4-L5 have not significantly changed. Vertebrae: No definite evidence for acute fracture or neoplasm. Conus medullaris: Normal, ends at T12-L1. Cauda equina: No masses or arachnoiditis. Posterior paraspinal muscles: Well preserved. There is mild bilateral paraspinal muscle edema in the lower lumbar spine. Soft tissues: No signal abnormalities. Multilevel advanced disc degeneration has not significantly changed. Nonspecific multilevel inflammatory endplate changes are most prominent at L3-L4 and T12-L1. T12-L1: Mild canal stenosis due to disc bulge and ligamentum flavum thickening. The right lateral recess is slightly effaced. Moderate to severe right foraminal stenosis due to disc bulge and facet arthrosis. No significant left foraminal stenosis. L1-L2: Mild canal stenosis due to disc bulge and ligamentum flavum thickening. The right lateral recess is minimally effaced. Mild right foraminal stenosis due to disc bulge and facet arthrosis. No significant left foraminal stenosis. L2-L3: Mild to moderate canal stenosis due to disc bulge and ligamentum flavum thickening. The right lateral recess is effaced. Moderate right foraminal stenosis due to disc bulge and facet arthrosis. No significant left foraminal stenosis. L3-L4: Moderate to severe canal stenosis due to disc bulge and ligamentum flavum thickening. The left lateral recess is severely effaced with likely impingement of the left descending L4 nerve root. Mild to moderate right and severe left foraminal stenosis due to posterior disc osteophyte complex and facet arthrosis. L4-L5: Moderate canal stenosis due to disc bulge and mentum plate and thickening. Both lateral recesses are effaced, left greater than right. Mild to moderate right and severe left foraminal stenosis due to disc bulge and facet arthrosis. L5-S1: Mild right and mild to moderate left foraminal stenoses due to disc bulge and facet arthrosis. IMPRESSION: 1. Overall unchanged multilevel advanced disc degeneration with thoracolumbar levoscoliosis and compensatory lower lumbar dextroscoliosis. 2. Nonspecific multilevel inflammatory endplate changes, most prominent at T12-L1 and L3-L4. 3. Multilevel degenerative canal stenoses as described above - mild to moderate at L2-L3; moderate to severe at L3-L4; moderate at L4-L5. 4. Multilevel degenerative foraminal stenoses - moderate to severe on the right at T12-L1; moderate on the right at L2-L3; severe on the left at L3-L4 and L4-L5. Signed by: Dr. Rakesh Arzate M.D. on 02/27/2020 3:57 PM
--- NOTE | 2020-02-28 09:21 | Diagnostic Imaging Report ---
MRI of the right hip without contrast. History: Right groin pain. Lumbar radiculopathy. Lower back pain. Recent fall. Technique: Multiplanar multisequence MRI of the right hip without contrast. Comparison: MRI lumbar spine from the same day. Findings: No acute fracture, subluxation or avascular necrosis. The urinary bladder and remainder of the visualized pelvic structures are grossly unremarkable. Scattered degenerative change about the visualized lower lumbar spine and pelvis. Please see report from MRI lumbar spine from the same day for further details. Moderate amount of edema in the right hip adductor musculature and in the iliopsoas musculature with high-grade partial tear involving the iliopsoas musculature at the right lesser trochanter. There is moderate adjacent soft tissue edema. No full-thickness tear or retraction is seen. The findings are best seen on series 8 image 13 through 23. The findings are also seen on series 9 image 20 through 30. Mild/moderate degenerative arthrosis in the right hip joint with thinning of the articular cartilage at the superior lateral acetabulum and adjacent femoral head. Minimal underlying bone marrow edema. Degenerative type tearing of the superior lateral labrum. Physiologic amount of fluid in the hip joint. The remainder of the visualized ligaments and tendons about the hip are intact. Mild edema adjacent to the right hip greater trochanter could be due to mild trochanteric bursitis. Mild superficial soft tissue edema could be due to superficial contusion. No focal fluid collection. The visualized neurovascular bundles are intact. Mild insertional hamstring tendinosis. Impression: Moderate amount of edema in the right hip adductor musculature and in the iliopsoas musculature consistent with muscle strain with high-grade partial tear involving the iliopsoas musculature at the right lesser trochanter. There is moderate adjacent soft tissue edema. No full-thickness tear or retraction is seen. Mild edema adjacent to the right hip greater trochanter could be due to mild trochanteric bursitis. Mild superficial soft tissue edema could be due to superficial contusion. No focal fluid collection. No acute fracture, subluxation or avascular necrosis. Signed by: Dr. Simeon Kowalski M.D. on 02/28/2020 9:17 AM
== END ==
LOC: MRI 13:57
PROVIDERS: ATTEND Physical Medicine & Rehabilitation Pain Medicine
DX: M54.16 Radiculopathy, lumbar region (principal); R10.30 Lower abdominal pain, unspecified
CPT/HCPCS: 72148